=== PATIENT | female | born 2000 | race African-American/Black ===

== ENCOUNTER 2023-03-12 23:16 | Emergency (ER) | payer MEDICAID, OTHER ==
[~2023-03-12] VITALS: Ht 167.6 cm; Wt 91.0 kg
[2023-03-13 00:06] VITALS: BP 122/80; PULSE 80; RESP 16; TEMP 98.1; O2SAT 99
[2023-03-13] MEDS ORDERED: DIPHENHYDRAMINE 50MG/ML VIAL IM ONE (00:45)
[2023-03-13] MEDS ORDERED: ONDANSETRON HCL 4MG TABLET PO ONE (00:45)
[2023-03-13] MEDS ORDERED: KETOROLAC 15MG/ML VIAL IM ONE (00:45)
[2023-03-13] MEDS ORDERED: ACETAMINOPHEN 325MG TABLET PO ONE (01:30)
[2023-03-13] MEDS ORDERED: NAPR-1176 MT (02:01)
== END 2023-03-13 02:22 | disposition home or self-care (01) ==
LOC: ER 23:16
DX: S06.0X0A Concussion without loss of consciousness, initial encounter (principal); V49.49XA Driver injured in collision with other motor vehicles in traffic accident, initial encounter; Y93.89 Activity, other specified; Y92.89 Other specified places as the place of occurrence of the external cause; Y99.8 Other external cause status
CPT/HCPCS: 99282; Z7610; J1200; J1885; Q0162